=== PATIENT | female | born 1990 | race Hispanic/Latino ===

== ENCOUNTER 2017-06-02 12:44 | Inpatient (IN) | payer OTHER ==
[2017-06-02 12:54] VITALS: BMI 26.6
--- NOTE | 2017-06-02 14:26 | ED PDOC ---
HPI: Abdomen Time Seen by Provider: 06/02/17 13:00 Chief Complaint (Nursing): Abdominal Pain History Per: Patient History/Exam Limitations: no limitations Onset/Duration Of Symptoms: Days (1), Gradual Severity: Moderate Location Of Pain/Discomfort: RUQ, RLQ Quality Of Discomfort: Sharp, Burning Associated Symptoms: Nausea, Vomiting, Diarrhea, Back Pain. denies: Fever, Chills, Constipation, Urinary Symptoms Exacerbating Factors: None Alleviating Factors: None Last Bowel Movement: Today Additional History Per: Patient Additional Complaint(s): C/o epigastric and suprapubic pain since 0100 with vomiting and slight diarrhea. Pt has hx of acid reflux/ GERD Past Medical History Reviewed: Historical Data, Nursing Documentation, Vital Signs Vital Signs: Last Vital Signs Temp 97.7 F 06/02/17 12:54 Pulse 79 06/02/17 12:54 Resp 20 06/02/17 12:54 BP 140/66 06/02/17 12:54 Pulse Ox 100 06/02/17 18:08 - Medical History PMH: No Chronic Diseases - Family History Family History: States: No Known Family Hx - Living Arrangements Living Arrangements: With Family - Social History Current smoker - smoking cessation education provided: No - Home Medications Home Medications: Ambulatory Orders Medication Instructions Recorded No Known Home Med 06/02/17 - Allergies Allergies/Adverse Reactions: Allergies Allergy/AdvReac Type Severity Reaction Status Date / Time Penicillins Allergy RASH Verified 06/02/17 12:54 Review of Systems ROS Statement: Except As Marked, All Systems Reviewed And Found Negative Constitutional: Negative for: Fever, Chills Cardiovascular: Negative for: Chest Pain, Palpitations Respiratory: Negative for: Cough, Shortness of Breath Gastrointestinal: Positive for: Nausea, Abdominal Pain, Diarrhea. Negative for : Constipation, Melena, Hematochezia, Hematemesis Genitourinary Female: Negative for: Dysuria, Vaginal Discharge, Vaginal Bleeding , Pelvic Pain Neurological: Negative for: Weakness, Numbness Physical Exam - Reviewed Nursing Documentation Reviewed: Yes Vital Signs Reviewed: Yes - Physical Exam Appears: Positive for: Uncomfortable Head Exam: Positive for: ATRAUMATIC, NORMAL INSPECTION, NORMOCEPHALIC Eye Exam: Positive for: Normal appearance, EOMI, PERRL Neck: Positive for: Normal, Painless ROM, Supple Cardiovascular/Chest: Positive for: Regular Rate, Rhythm, Chest Non Tender. Negative for: Edema, Gallop, Murmur, Bradycardia, Tachycardia Respiratory: Positive for: Normal Breath Sounds. Negative for: Decreased Breath Sounds, Accessory Muscle Use, Crackles, Rales, Rhonchi, Stridor, Wheezing Pulses-Radial (L): 2+ Pulses-Radial (R): 2+ Gastrointestinal/Abdominal: Positive for: Normal Exam, Bowel Sounds, Soft, Other (obese). Negative for: Tenderness, Organomegaly, Mass, Distended, Guarding Back: Positive for: Normal Inspection. Negative for: L CVA Tenderness, R CVA Tenderness Extremity: Positive for: Normal ROM. Negative for: Tenderness, Pedal Edema, Calf Tenderness, Deformity, Swelling Neurologic/Psych: Positive for: Alert, bottom filler II-XII, Oriented. Negative for: Motor/Sensory Deficits - Laboratory Results Result Diagrams: 06/02/17 14:20 06/02/17 14:20 - ECG ECG: Positive for: Interpreted By Me ECG Rhythm: Positive for: Normal QRS, Normal ST Segment, Sinus Bradycardia. Negative for: ST/T Changes Interpretation Of Abn EKG: rate of 59 no evidence of ischemia O2 Sat by Pulse Oximetry: 100 Pulse Ox Interpretation: Normal Medical Decision Making Medical Decision Making: awaiting surgery call back pt has persistent pain likely cholecystitis, admit to dr louis who agree's with plan. Disposition - Clinical Impression Clinical Impression: Cholecystitis - Patient ED Disposition Is Patient to be Admitted: No Counseled Patient/Family Regarding: Studies Performed, Diagnosis - Disposition Disposition Time: 17:00 Condition: STABLE Forms: [employer] (Ecuadorean) - Pt Status Changed To: Hospital Disposition Of: Inpatient - Admit Certification Admit to Inpatient:: After my assessment, the patient will require hospitalization for at least two midnights. This is because of the severity of symptoms shown, intensity of services needed, and/or the medical risk in this patient being treated as an outpatient. - POA Present On Arrival: None
[2017-06-02 14:30] LABS: BASO # 0.1 K/uL (0.0-0.2); BASO % 0.6 % (0.0-2.0); EOS % 0.4 % (0.0-4.0); HEMATOCRIT 37.3 % (34.0-47.0); LYMPH # 1.5 K/uL (1.0-4.3); LYMPH % 13.7 % (20.0-40.0); MEAN CELL VOLUME 89.3 fl (81.0-99.0); MEAN CORPUSCULAR HEMOGLOBIN 29.7 pg (27.0-31.0); MEAN CORPUSCULAR HGB CONC 33.3 g/dL (33.0-37.0); MEAN PLATELET VOLUME 8.6 fl (7.2-11.7); MONO # 0.5 K/uL (0.0-0.8); MONO % 4.2 % (0.0-10.0); NEUT % 81.1 % (50.0-75.0); NRBC % 0.1 % (0.0-0.0); WHITE BLOOD COUNT 11.1 K/uL (4.8-10.8)
[2017-06-02 14:37] LABS: RBC URINE 1 /hpf (0-3); URINE BILIRUBIN NEGATIVE (NEGATIVE); URINE BLOOD NEGATIVE (NEGATIVE); URINE COLOR STRAW (YELLOW); URINE GLUCOSE (UA) NEG (Normal); URINE KETONE NEGATIVE (NEGATIVE); URINE LEUKOCYTE ESTERASE NEG Leu/uL (Negative); URINE PROTEIN NEGATIVE (NEGATIVE); URINE UROBILINOGEN 0.2-1.0 mg/dL (0.2-1.0); WBC URINE 1 /hpf (0-5)
[2017-06-02 14:45] LABS: ALB/GLOB RATIO 1.4 (1.0-2.1); ALKALINE PHOSPHATASE 54 U/L (38-126); ALT/SGPT 30 U/L (9-52); AMYLASE 74 U/L (30-110); AST/SGOT 20 U/L (14-36); BILIRUBIN,TOTAL 0.5 mg/dl (0.2-1.3); BLOOD UREA NITROGEN 9 mg/dl (7-17); CALCIUM 10.3 mg/dL (8.4-10.2); CARBON DIOXIDE 24 mmol/L (22-30); CHLORIDE 100 mmol/L (98-107); GFR AFRICAN-AMERICAN > 60; GLUCOSE,RANDOM 99 mg/dL (65-105); LIPASE 38 U/L (23-300); POTASSIUM 4.3 MMOL/L (3.6-5.0); SODIUM 132 mmol/l (132-148); TOTAL PROTEIN 7.7 G/DL (6.3-8.2)
[2017-06-02] MEDS ORDERED: Iohexol 300 100 ML IJ ONE (15:15)
--- NOTE | 2017-06-02 15:36 | RAD ---
HISTORY: abd pain COMPARISON: No prior. FINDINGS: LUNGS: No active pulmonary disease. PLEURA: No significant pleural effusion identified, no pneumothorax apparent. CARDIOVASCULAR: Normal. OSSEOUS STRUCTURES: No significant abnormalities. VISUALIZED UPPER ABDOMEN: Normal. OTHER FINDINGS: None. IMPRESSION: No active disease. Concordant results with the preliminary interpretation rendered by the emergency department physician procedure.
--- NOTE | 2017-06-02 16:04 | CT ---
PROCEDURE: CT Abdomen and Pelvis without intravenous contrast HISTORY: Right-sided abdominal pain. Relevant medical history: Reflux COMPARISON: None. TECHNIQUE: Unenhanced study. Neither oral nor intravenous contrast administered. Radiation dose: Total exam DLP = 717.68 717.68 mGy-cm. This CT exam was performed using one or more of the following dose reduction techniques: Automated exposure control, adjustment of the mA and/or kV according to patient size, and/or use of iterative reconstruction technique. FINDINGS: LOWER THORAX: Unremarkable. LIVER: Unremarkable. No gross lesion or ductal dilatation. GALLBLADDER AND BILE DUCTS: Cholelithiasis without CT evidence of acute cholecystitis. Gallbladder is distended. PANCREAS: Unremarkable. No gross lesion or ductal dilatation. SPLEEN: Unremarkable. ADRENALS: Unremarkable. No mass. KIDNEYS AND URETERS: Unremarkable. No hydronephrosis. No solid mass. VASCULATURE: Unremarkable. No aortic aneurysm. BOWEL: Unremarkable. No obstruction. No gross mural thickening. APPENDIX: Unremarkable. Normal appendix. PERITONEUM: Unremarkable. No free fluid. No free air. LYMPH NODES: Unremarkable. No enlarged lymph nodes. BLADDER: Unremarkable. REPRODUCTIVE: Unremarkable. BONES: No acute fracture. OTHER FINDINGS: None. IMPRESSION: Cholelithiasis without CT evidence of acute cholecystitis. Distended gallbladder.
[2017-06-02] MEDS ORDERED: Ciprofloxacin 400mg/200ml D5W 400 MG/200 ML BAG IVPB STA (17:02)
[2017-06-02] MEDS ORDERED: metroNIDAZOLE 500mg/100ml NS IVPB STA (17:03)
[2017-06-02] MEDS ORDERED: Morphine 4 MG/ML VIAL IVP STA (17:16)
[2017-06-02] MEDS ORDERED: Sodium Chloride 0.9% 1,000 ML IV ONE (17:16)
[2017-06-02] MEDS ORDERED: Ciprofloxacin 400mg/200ml D5W 400 MG/200 ML BAG IVPB ONE (17:18)
[2017-06-02] MEDS ORDERED: metroNIDAZOLE 500mg/100ml NS 100 ML IVPB ONE (17:18)
[2017-06-02] MEDS ORDERED: Morphine 4 MG/ML VIAL ONE (17:20)
--- NOTE | 2017-06-02 20:20 | CP.PCM.CON ---
<Marcia Jose - Last Filed: 06/02/17 21:26> History of Present Illness - History of Present Illness History of Present Illness: General Surgery Dr. Barth 27 y/o F w/ PMHx of GERD presents to the ED c/o abd pain. Pt states pain began around 1am this morning. Pain has been intensifying throughout the day which prompted the pt to come in for evaluation. Pt reports having similar pain in the past in relation to her GERD symptoms, but never this severe and never lasting this long. Pain described as squeezing pain in epigastric/RUQ region. Pain is non-radiating, constant pain that worsens in waves. Nothing made pain better and nothing seemed to make pain worse. Pt admits to multiple episodes of NBNB vomiting in association w/ this pain, as well as diarrhea. Pt also admits to chills, lightheadedness, and SOB 2/2 pain. Pt denies CP, palpitations, dysuria, numbness/weakness. PMHx: see above Meds: reviewed in chart ALL: PCN, shellfish PSHx: denies SHx: denies tobacco, drug use. occasional EtOH use FHx: HTN, DM2, fibroids PMD: [place], [place] [phone] Review of Systems - Review of Systems All systems: reviewed and no additional remarkable complaints except (see HPI) Past Patient History - Past Social History Smoking Status: Never Smoked - PSYCHIATRIC Hx Substance Use: No - SURGICAL HISTORY Hx Surgeries: No Meds Allergies/Adverse Reactions: Allergies Allergy/AdvReac Type Severity Reaction Status Date / Time Penicillins Allergy RASH Verified 06/02/17 12:54 - Medications Medications: Current Medications Sodium Chloride (Sodium Chloride 0.9%) 1,000 mls @ 100 mls/hr IV .Q10H ONE Stop: 06/03/17 03:15 Last Admin: 06/02/17 17:32 Dose: 100 mls/hr Physical Exam - Constitutional Appears: Non-toxic, No Acute Distress - Head Exam Head Exam: NORMAL INSPECTION - Eye Exam Eye Exam: Normal appearance - ENT Exam ENT Exam: Mucous Membranes Moist - Respiratory Exam Respiratory Exam: NORMAL BREATHING PATTERN. absent: Accessory Muscle Use, Respiratory Distress - Cardiovascular Exam Cardiovascular Exam: absent: Bradycardia, Tachycardia - GI/Abdominal Exam GI & Abdominal Exam: Soft, Tenderness (TTP RUQ/Epigastric). absent: Distended, Firm, Guarding, Rebound, Rigid - Extremities Exam Extremities exam: Positive for: normal inspection - Neurological Exam Neurological exam: Alert, Oriented x3 - Psychiatric Exam Psychiatric exam: Normal Affect, Normal Mood - Skin Skin Exam: Dry, Intact, Normal Color, Warm Results - Vital Signs Recent Vital Signs: Last Vital Signs Temp 97.7 F 06/02/17 12:54 Pulse 79 06/02/17 12:54 Resp 20 06/02/17 12:54 BP 140/66 06/02/17 12:54 Pulse Ox 100 06/02/17 18:09 - Labs Result Diagrams: 06/02/17 14:20 06/02/17 14:20 Labs: Laboratory Results - last 24 hr 06/02/17 06/02/17 06/02/17 14:20 14:20 14:20 WBC 11.1 H RBC 4.18 Hgb 12.4 Hct 37.3 MCV 89.3 MCH 29.7 MCHC 33.3 RDW 13.0 Plt Count 271 MPV 8.6 Neut % (Auto) 81.1 H Lymph % (Auto) 13.7 L [place] % (Auto) 4.2 Eos % (Auto) 0.4 Baso % (Auto) 0.6 Neut # 9.0 H Lymph # 1.5 [place] # 0.5 Eos # 0.0 Baso # 0.1 Sodium 132 Potassium 4.3 Chloride 100 Carbon Dioxide 24 Anion Gap 12 BUN 9 Creatinine 0.7 Est GFR ( Amer) > 60 Est GFR (Non-Af Amer) > 60 Random Glucose 99 Calcium 10.3 H Total Bilirubin 0.5 AST 20 ALT 30 Alkaline Phosphatase 54 Troponin I < 0.0120 Total Protein 7.7 Albumin 4.6 Globulin 3.2 Albumin/Globulin Ratio 1.4 Amylase 74 Lipase 38 Urine Color Straw Urine Clarity Clear Urine pH 5.0 Ur Specific [place] 1.016 Urine Protein Negative Urine Glucose (UA) Neg Urine Ketones Negative Urine Blood Negative Urine Nitrate Negative Urine Bilirubin Negative Urine Urobilinogen 0.2-1.0 Ur Leukocyte Esterase Neg Urine RBC (Auto) 1 Urine Microscopic WBC 1 Ur Squamous Epith Cells < 1 - Imaging and Cardiology CT scan - abdomen Status: Image reviewed by me US - abdomen Status: Image reviewed by me Assessment & Plan - Assessment and Plan (Free Text) Assessment: 27 y/o F w/ acute cholecystitis - NPO, IVF - IV Abx - pain management - anti-emetic - incentive spirometer - OR scheduled for 4pm tomorrow - GI PPx - hold anti-coagulation Pt discussed w/ Dr. Lary Jose DO PGY2 <Juliocesar Barth - Last Filed: 06/05/17 09:16> Results - Vital Signs Recent Vital Signs: Last Vital Signs Temp 98.2 F 06/04/17 13:00 Pulse 82 06/04/17 13:00 Resp 19 06/04/17 13:00 BP 101/61 06/04/17 13:00 Pulse Ox 96 06/04/17 13:00 - Labs Result Diagrams: 06/04/17 06:05 06/04/17 06:05 Labs: Laboratory Results - last 24 hr 06/02/17 14:35 C.trachomatis RNA (TMA) Not detected N.gonorrhoeae RNA (TMA) Not detected Attending/Attestation - Attestation I have personally seen and examined this patient.: Yes I have fully participated in the care of the patient.: Yes I have reviewed all pertinent clinical information: Yes Notes (Text): Pt was seen and examined at bedside Agree with above note and assessment Pt with Acute cholecystitis with leucocytosis RUQ tenderness Labs and radiology reviewed Ass: Acute Cholecystitis Plan : OR for Lap Cholecystectomy possible Open Consent NPO, IVF C/w IV antibiotic Plan d.w pt in detail. Risk and benefit explained in detail.
[2017-06-02] MEDS ORDERED: HYDROmorphone 0.5 mg/0.5 ml ISec IVP PRN (22:43)
[2017-06-02] MEDS: Dextrose 5%/0.9% NS 1,000 ML IV SCH (23:34)
[2017-06-03] MEDS: metroNIDAZOLE 500mg/100ml NS 100 ML IVPB SCH ×3 (00:43→17:00)
[2017-06-03] MEDS: Ciprofloxacin 400mg/200ml D5W 400 MG/200 ML BAG IVPB SCH ×3 (01:45→17:00)
[2017-06-03] MEDS ORDERED: Ciprofloxacin 400mg/200ml D5W 400 MG/200 ML BAG IVPB SCH (09:00)
[2017-06-03] MEDS: Dextrose 5%/0.9% NS 1,000 ML IV SCH ×2 (09:26→14:11)
[2017-06-03 10:11] LABS: BASO % 0.5 % (0.0-2.0); EOS # 0.1 K/uL (0.0-0.7); EOS % 1.8 % (0.0-4.0); HEMATOCRIT 32.8 % (34.0-47.0); LYMPH # 1.2 K/uL (1.0-4.3); LYMPH % 16.7 % (20.0-40.0); MEAN CELL VOLUME 89.8 fl (81.0-99.0); MEAN CORPUSCULAR HEMOGLOBIN 30.2 pg (27.0-31.0); MEAN CORPUSCULAR HGB CONC 33.7 g/dL (33.0-37.0); MEAN PLATELET VOLUME 8.5 fl (7.2-11.7); MONO # 0.7 K/uL (0.0-0.8); MONO % 9.2 % (0.0-10.0); NEUT # 5.2 K/uL (1.8-7.0); NEUT % 71.8 % (50.0-75.0); WHITE BLOOD COUNT 7.2 K/uL (4.8-10.8)
[2017-06-03 10:20] LABS: PARTIAL THROMBOPLASTIN TIME 26.6 Seconds (25.6-37.1)
[2017-06-03 10:29] LABS: ALB/GLOB RATIO 1.2 (1.0-2.1); ALKALINE PHOSPHATASE 38 U/L (38-126); ALT/SGPT 30 U/L (9-52); AST/SGOT 14 U/L (14-36); BILIRUBIN,TOTAL 0.5 mg/dl (0.2-1.3); BLOOD UREA NITROGEN 7 mg/dl (7-17); CALCIUM 8.2 mg/dL (8.4-10.2); CARBON DIOXIDE 25 mmol/L (22-30); CHLORIDE 107 mmol/L (98-107); GFR AFRICAN-AMERICAN > 60; GLUCOSE,RANDOM 107 mg/dL (65-105); POTASSIUM 4.1 MMOL/L (3.6-5.0); SODIUM 139 mmol/l (132-148); TOTAL PROTEIN 6.1 G/DL (6.3-8.2)
--- NOTE | 2017-06-03 11:05 | US ---
HISTORY: Right upper quadrant pain COMPARISON: None. TECHNIQUE: Grayscale imaging was performed. FINDINGS: LIVER: Measures 16.8 cm in length. Normal echogenicity of the liver parenchyma. No mass. No intrahepatic bile duct dilatation. GALLBLADDER: The gallbladder is distended and there are multiple gallstones. There is mild gallbladder wall thickening or pericholecystic fluid. The sonographic Alatorre's sign is negative. COMMON BILE DUCT: Measures 5.2 mm. No stones. Mild dilatation. PANCREAS: Unremarkable as visualized. No mass. No ductal dilatation. RIGHT KIDNEY: Measures 10.9 cm in length. Normal echogenicity. No calculus, mass, or hydronephrosis. AORTA: No aneurysmal dilatation. IVC: Unremarkable. OTHER FINDINGS: None . IMPRESSION: Distended gallbladder, cholelithiasis and mild gallbladder wall thickening. No evidence of pericholecystic fluid or positive sonographic Alatorre's sign. However these findings in the appropriate clinical setting could represent acute calculus cholecystitis. Clinical follow-up is advised. Mild dilatation of the common bile duct without sonographic evidence for choledocholithiasis.
[2017-06-03] MEDS ORDERED: Midazolam 2 MG/2 ML VIAL ONE (14:27)
[2017-06-03] MEDS ORDERED: Propofol 10 mg/ml Inj (20 ML) ONE (14:27)
[2017-06-03] MEDS ORDERED: Rocuronium 10 mg/ml (5 ml) ONE (14:27)
[2017-06-03] MEDS ORDERED: Succinylcholine 200 mg/10 ml Inj IV ONE (14:27)
[2017-06-03] MEDS ORDERED: Lidocaine 1% 5ml Abboject IV ONE (14:28)
[2017-06-03] MEDS ORDERED: Lidocaine 1% Inj (20ml) ONE (15:11)
[2017-06-03] MEDS ORDERED: Bupivacaine 0.5% Inj(30mL) ONE (15:11)
[2017-06-03] MEDS ORDERED: Ciprofloxacin 400mg/200ml D5W 400 MG/200 ML BAG IVPB ONE (15:25)
[2017-06-03] MEDS ORDERED: metroNIDAZOLE 500mg/100ml NS 100 ML IVPB ONE (15:25)
--- NOTE | 2017-06-03 15:36 | CP.PCM.HP ---
History of Present Illness - History of Present Illness History of Present Illness: CC: Worsened Abdominal Pain Hsitory of Present Illness: A 27 y/o F w/ PMHx of GERD presents to the ED c/o abd pain. Pt states pain began around 1am the morning of presentation to the ER. Pain has been intensifying throughout the day which prompted the pt to come in for evaluation. Pt reports having similar pain in the past in relation to her GERD like symptoms, but never this severe and never lasting this long. Pain described as squeezing pain in epigastric/RUQ region. Pain is non-radiating, constant pain that worsens in waves. Nothing made pain better and nothing seemed to make pain worse. Pt admits to multiple episodes of NBNB vomiting in association w/ this pain, as well as diarrhea. Pt also admits to chills, lightheadedness, and SOB 2/2 pain. Pt denies CP, palpitations, dysuria, numbness /weakness. Present on Admission - Present on Admission Any Indicators Present on Admission: No History of DVT/PE: No History of Uncontrolled Diabetes: No Urinary Catheter: No Decubitus Ulcer Present: No Review of Systems - Review of Systems All systems: reviewed and no additional remarkable complaints except - Gastrointestinal Gastrointestinal: As Per HPI Past Patient History - Past Medical History & Family History Past Medical History?: Yes Past Family History: Reviewed and not pertinent - Past Social History Smoking Status: Never Smoked Alcohol: Occasional Drugs: Denies - CARDIAC Hx Cardiac Disorders: No - PULMONARY Hx Asthma: Yes - NEUROLOGICAL Hx Neurological Disorder: No - RENAL Hx Chronic Kidney Disease: No - ENDOCRINE/METABOLIC Hx Endocrine Disorders: No - HEMATOLOGICAL/ONCOLOGICAL Hx Blood Disorders: No Hx AIDS: No Hx Human Immunodeficiency Virus (HIV): No - INTEGUMENTARY Hx Dermatological Problems: No - MUSCULOSKELETAL/RHEUMATOLOGICAL Hx Musculoskeletal Disorders: No Hx Falls: No - GASTROINTESTINAL Hx Gastroesophageal Reflux: Yes - GENITOURINARY/GYNECOLOGICAL Hx Genitourinary Disorders: No - PSYCHIATRIC Hx Psychophysiologic Disorder: No Hx Substance Use: No - SURGICAL HISTORY Hx Surgeries: No - ANESTHESIA Hx Anesthesia: No Meds Home Medications: Home Medication List Medication Instructions Recorded Confirmed Type Docusate Sodium [Colace] 100 mg PO BID #30 capsule 06/04/17 Rx Ibuprofen [Motrin] 600 mg PO Q6 PRN #30 tab 06/04/17 Rx Allergies/Adverse Reactions: Allergies Allergy/AdvReac Type Severity Reaction Status Date / Time Penicillins Allergy RASH Verified 06/02/17 12:54 Physical Exam - Constitutional Appears: Well, In Acute Distress - Head Exam Head Exam: ATRAUMATIC, NORMAL INSPECTION, NORMOCEPHALIC - Eye Exam Eye Exam: EOMI, Normal appearance, PERRL Pupil Exam: NORMAL ACCOMODATION, PERRL - ENT Exam ENT Exam: Mucous Membranes Moist, Normal Exam - Neck Exam Neck exam: Positive for: Normal Inspection - Respiratory Exam Respiratory Exam: Clear to Auscultation Bilateral, NORMAL BREATHING PATTERN - Cardiovascular Exam Cardiovascular Exam: REGULAR RHYTHM, +S1, +S2 - GI/Abdominal Exam GI & Abdominal Exam: Normal Bowel Sounds, Soft, Tenderness. absent: Guarding, Rebound, Rigid - Extremities Exam Extremities exam: Positive for: full ROM, normal capillary refill, normal inspection - Back Exam Back exam: NORMAL INSPECTION. absent: CVA tenderness (L), CVA tenderness (R) - Neurological Exam Neurological exam: Alert, CN II-XII Intact, Normal Gait, Oriented x3, Reflexes Normal - Psychiatric Exam Psychiatric exam: Normal Affect, Normal Mood - Skin Skin Exam: Dry, Intact, Normal Color, Warm Results - Vital Signs Recent Vital Signs: Last Vital Signs Temp 98.5 F 06/03/17 08:04 Pulse 67 06/03/17 08:04 Resp 18 06/03/17 08:04 BP 99/62 L 06/03/17 08:04 Pulse Ox 93 L 06/03/17 08:04 - Labs Result Diagrams: 06/04/17 06:05 06/04/17 06:05 Labs: Laboratory Results - last 24 hr 06/03/17 06/03/17 06/03/17 09:30 09:30 09:30 WBC 7.2 RBC 3.66 L Hgb 11.1 L Hct 32.8 L MCV 89.8 MCH 30.2 MCHC 33.7 RDW 13.0 Plt Count 227 MPV 8.5 Neut % (Auto) 71.8 Lymph % (Auto) 16.7 L [place] % (Auto) 9.2 Eos % (Auto) 1.8 Baso % (Auto) 0.5 Neut # 5.2 Lymph # 1.2 [place] # 0.7 Eos # 0.1 Baso # 0.0 PT 12.4 INR 1.1 APTT 26.6 Sodium 139 Potassium 4.1 Chloride 107 Carbon Dioxide 25 Anion Gap 11 BUN 7 Creatinine 0.8 Est GFR ( Amer) > 60 Est GFR (Non-Af Amer) > 60 Random Glucose 107 H Calcium 8.2 L Total Bilirubin 0.5 AST 14 D ALT 30 Alkaline Phosphatase 38 D Total Protein 6.1 L Albumin 3.4 L D Globulin 2.8 Albumin/Globulin Ratio 1.2 - Imaging and Cardiology CT scan - abdomen Status: Report reviewed by me Additional comment: /Pelvis: IMPRESSION: Cholelithiasis without CT evidence of acute cholecystitis. Distended gallbladder. U/S Abdomen: Status: Report reviewed by me Additional comment: IMPRESSION: Distended gallbladder, cholelithiasis and mild gallbladder wall thickening. No evidence of pericholecystic fluid or positive sonographic Alatorre's sign. However these findings in the appropriate clinical setting could represent acute calculus cholecystitis. Clinical follow-up is advised. Mild dilatation of the common bile duct without sonographic evidence for choledocholithiasis. Assessment & Plan (1) Acute cholecystitis Assessment and Plan: IVF IV Ciprofloxacin/Flagyl Dilaudid PRN Surgery Consulted Silvio PRN Status: Acute Priority: High
[2017-06-03] MEDS ORDERED: Lactated Ringer's 1,000 ML IV ONE ×2 (15:48→18:10)
[2017-06-03] MEDS ORDERED: Ciprofloxacin 400mg/200ml D5W IVPB ONE (15:55)
[2017-06-03] MEDS ORDERED: metroNIDAZOLE 500mg/100ml NS IVPB ONE (15:55)
[2017-06-03] MEDS ORDERED: Lactated Ringer's 500 ML IV ONE (17:20)
--- NOTE | 2017-06-03 18:13 | PCM.SURG1 ---
Surgeon's Initial Post Op Note - Surgeon's Notes Surgeon: Juliocesar Barth MD Block Bolter Mule Operator: Yamilex Tovar PGY-3; Becki De Jesus PGY-1 Pre-Operative Diagnosis: Symptomatic Cholelithiasis Operative Findings: See op report Post-Operative Diagnosis: Acute cholecystitis Operation Performed: Laparoscopic Cholecystectomy Specimen/Specimens Removed: Gallbladder Estimated Blood Loss: EBL {In ML}: 50 Blood Products Given: N/A Drains Used: No Drains Post-Op Condition: Good Date of Surgery/Procedure: 06/03/17 Time of Surgery/Procedure: 18:12
[2017-06-03] MEDS: HYDROmorphone 0.5 mg/0.5 ml ISec IVP PRN ×2 (18:17→18:55)
[2017-06-04] MEDS: metroNIDAZOLE 500mg/100ml NS 100 ML IVPB SCH ×2 (00:02→10:38)
[2017-06-04] MEDS: Ciprofloxacin 400mg/200ml D5W 400 MG/200 ML BAG IVPB SCH ×2 (01:05→08:57)
[2017-06-04 06:29] LABS: BASO % 0.5 % (0.0-2.0); EOS # 0.1 K/uL (0.0-0.7); EOS % 0.8 % (0.0-4.0); HEMATOCRIT 32.8 % (34.0-47.0); LYMPH # 1.4 K/uL (1.0-4.3); LYMPH % 17.1 % (20.0-40.0); MEAN CELL VOLUME 91.1 fl (81.0-99.0); MEAN CORPUSCULAR HEMOGLOBIN 29.7 pg (27.0-31.0); MEAN CORPUSCULAR HGB CONC 32.6 g/dL (33.0-37.0); MEAN PLATELET VOLUME 8.7 fl (7.2-11.7); MONO # 0.7 K/uL (0.0-0.8); MONO % 8.8 % (0.0-10.0); NEUT # 6.1 K/uL (1.8-7.0); NEUT % 72.8 % (50.0-75.0); NRBC % 0.1 % (0.0-0.0); RED CELL DISTRIBUTION WIDTH 12.8 % (11.5-14.5); WHITE BLOOD COUNT 8.4 K/uL (4.8-10.8)
[2017-06-04 06:43] LABS: ALB/GLOB RATIO 1.2 (1.0-2.1); ALKALINE PHOSPHATASE 39 U/L (38-126); ALT/SGPT 43 U/L (9-52); AST/SGOT 58 U/L (14-36); BILIRUBIN,TOTAL 0.4 mg/dl (0.2-1.3); BLOOD UREA NITROGEN 6 mg/dl (7-17); CALCIUM 7.9 mg/dL (8.4-10.2); CARBON DIOXIDE 25 mmol/L (22-30); CHLORIDE 107 mmol/L (98-107); GFR AFRICAN-AMERICAN > 60; GLUCOSE,RANDOM 91 mg/dL (65-105); POTASSIUM 4.6 MMOL/L (3.6-5.0); SODIUM 139 mmol/l (132-148); TOTAL PROTEIN 6.3 G/DL (6.3-8.2)
[2017-06-04 08:14] VITALS: O2SAT 96
--- NOTE | 2017-06-04 08:37 | CP.PCM.PN ---
Subjective - Date & Time of Evaluation Date of Evaluation: 06/04/17 Time of Evaluation: 07:15 - Subjective Subjective: Seen and examined at the bed side. Staes feeling better. But still soreness to the abdomen. Objective - Vital Signs/Intake and Output Vital Signs (last 24 hours): Temp Pulse Resp BP Pulse Ox 98.7 F 78 18 99/61 L 96 06/04/17 08:13 06/04/17 08:13 06/04/17 08:13 06/04/17 08:13 06/04/17 08:13 - Medications Medications: Current Medications Hydromorphone HCl (Dilaudid) 0.5 mg IVP Q3 PRN PRN Reason: Pain, severe (8-10) Metronidazole (Flagyl 500mg/100ml Ns) 100 mls @ 100 mls/hr IVPB Q8 [place]TT[place] PRN Reason: Protocol Last Admin: 06/04/17 00:02 Dose: 100 mls/hr Ciprofloxacin (Cipro 400mg/200ml Dsw) 400 mg in 200 mls @ 200 mls/hr IVPB Q8 [place] PRN Reason: Protocol Last Admin: 06/04/17 01:05 Dose: 200 mls/hr Lactated Ringer's (Lactated Ringer's) 1,000 mls @ 100 mls/hr IV .Q10H [facility] Ketorolac Tromethamine (Toradol) 30 mg IVP Q6 PRN PRN Reason: Pain, moderate (4-7) Stop: 06/07/17 22:44 Last Admin: 06/03/17 23:56 Dose: 30 mg Ondansetron HCl (Zofran Inj) 4 mg IVP Q4 PRN PRN Reason: Nausea/Vomiting Last Admin: 06/03/17 10:45 Dose: 4 mg Pantoprazole Sodium (Protonix Inj) 40 mg IVP DAILY [facility] Last Admin: 06/03/17 09:28 Dose: 40 mg - Labs Labs: 06/04/17 06:05 06/04/17 06:05 PT 12.4 Seconds (9.8-13.1) 06/03/17 09:30 INR 1.1 (0.9-1.2) 06/03/17 09:30 APTT 26.6 Seconds (25.6-37.1) 06/03/17 09:30 - Constitutional Appears: Well, No Acute Distress - Head Exam Head Exam: ATRAUMATIC, NORMAL INSPECTION, NORMOCEPHALIC - Eye Exam Eye Exam: EOMI, Normal appearance, PERRL Pupil Exam: NORMAL ACCOMODATION, PERRL - ENT Exam ENT Exam: Mucous Membranes Moist, Normal Exam - Neck Exam Neck Exam: Full ROM, Normal Inspection. absent: Lymphadenopathy - Respiratory Exam Respiratory Exam: Clear to Ausculation Bilateral, NORMAL BREATHING PATTERN - Cardiovascular Exam Cardiovascular Exam: REGULAR RHYTHM, +S1, +S2. absent: Murmur - GI/Abdominal Exam GI & Abdominal Exam: Soft, Normal Bowel Sounds. absent: Tenderness - Extremities Exam Extremities Exam: Full ROM, Normal Capillary Refill, Normal Inspection. absent : Joint Swelling, Pedal Edema - Back Exam Back Exam: NORMAL INSPECTION. absent: CVA tenderness (L), CVA tenderness (R) - Neurological Exam Neurological Exam: Alert, Awake, CN II-XII Intact, Normal Gait, Oriented x3 - Psychiatric Exam Psychiatric exam: Normal Affect, Normal Mood - Skin Skin Exam: Dry, Intact, Normal Color, Warm Assessment and Plan (1) Acute cholecystitis Assessment & Plan: S/P LAp-Cholecystectomy Tolerating PO D/C Home Status: Acute
--- NOTE | 2017-06-04 08:44 | OP ---
PROCEDURE DATE: 06/03/2017 PREOPERATIVE DIAGNOSES: Acute cholecystitis and leukocytosis. POSTOPERATIVE DIAGNOSES: 1. Acute on chronic cholecystitis. 2. Hydrops of the gallbladder. 3. Extensive postinfectious adhesion. 4. Hepatomegaly. PROCEDURE: 1. Laparoscopic cholecystectomy. 2. Laparoscopic extensive lysis of adhesion. 3. Laparoscopic drainage of hydrops of the gallbladder. SURGEON: The procedure was done by Juliocesar bello MD. BUSINESS DEVELOPMENT SALES EXECUTIVE: ALLI Dalal. TYPE OF ANESTHESIA: General endotracheal tube anesthesia. INTRAOPERATIVE FINDINGS: The patient had extensive postinfectious adhesion of the gallbladder to the omentum, gallbladder to the colon and also gallbladder to the duodenum. The patient also has extremely thickened and edematous and distended gallbladder due to the hydrops of the gallbladder. The patient also had large multiple stones. During initial evaluation, the patient found to have enlarged liver as well as extremely thickened and edematous large distended gallbladder, so all the port was placed lower than usual port position. ESTIMATED BLOOD LOSS: Around 50 mL. DRAIN: None. PATHOLOGY: Gallbladder with the gallstones was sent for the pathology. COMPLICATIONS: None. DESCRIPTION OF PROCEDURE: On intraoperative steps, this is a 27-year-old female, who was diagnosed with acute cholecystitis and cholelithiasis and the patient was consented for laparoscopic cholecystectomy, possible open, brought to the OR, placed supine on the operating table. After induction of the anesthesia, the abdomen was prepped and draped in the usual sterile fashion. The supraumbilical transverse incision was made after incising skin and subcutaneous tissue and the fascia. Riley port was placed. Pneumo was created. Another 12-mm port was placed in the midline below costal margin and another two 5-mm ports were placed in the midclavicular and anterior axillary line. After that, the gallbladder first was aspirated and there was clear fluid was aspirated due to the hydrops of the gallbladder and after aspiration of the hydrops of the gallbladder, the gallbladder was retracted cranially. Now, the extensive lysis of adhesion was done from the omentum to the gallbladder, colon to the gallbladder as well as duodenum to the infundibulum and dissection was carried down. The patient had extensive inflammation and dissection was carried down up to the Calot's triangle and the cystic duct and cystic artery were dissected and clipped at three places and cut in between two clips nearby gallbladder and the gallbladder was dissected free from the gallbladder fossa, taken in an EndoCatch bag, taken out through the umbilical port site and sent to the table for the pathology. There was a proper hemostasis in each and every part of the procedure. All the fluid was suctioned out and all the port was taken out under vision. Pneumo was deflated. The umbilical port site was closed in two layers, fascia with 0 Vicryl interrupted sutures, skin with 4-0 Monocryl and dry sterile dressing was applied. The patient tolerated the procedure well. Count of instrument and gauze was correct. There was no apparent complication. The patient was extubated in the OR, sent to the Postanesthesia Care Unit in stable condition. Juliocesar Barth MD
[2017-06-04] MEDS: Dextrose 5%/0.9% NS 1,000 ML IV SCH (08:47)
[2017-06-04] MEDS: Lactated Ringer's 1,000 ML IV SCH ×2 (08:51→08:52)
--- NOTE | 2017-06-04 11:53 | CARD ---
APPROVED REPORT EKG Measurement Heart [id number] <Conclusion> Sinus bradycardia Otherwise normal ECG
--- NOTE | 2017-06-04 13:26 | CP.PCM.PN ---
<Yamilex Tovar - Last Filed: 06/04/17 14:47> Subjective - Date & Time of Evaluation Date of Evaluation: 06/04/17 Time of Evaluation: 09:00 - Subjective Subjective: GENERAL SURGERY PROGRESS NOTE FOR DR. BARTH Patient seen and examined at bedside. She is doing well. She is ambulating in the halls and to the bathroom. She states that she only has abdominal pain when she moves. Her pain is well controlled with toradol. She is tolerating regular diet and denies nausea or vomiting. Objective - Vital Signs/Intake and Output Vital Signs (last 24 hours): Temp Pulse Resp BP Pulse Ox 98.7 F 78 18 99/61 L 96 06/04/17 08:13 06/04/17 08:13 06/04/17 08:13 06/04/17 08:13 06/04/17 08:13 - Medications Medications: Current Medications Hydromorphone HCl (Dilaudid) 0.5 mg IVP Q3 PRN PRN Reason: Pain, severe (8-10) Metronidazole (Flagyl 500mg/100ml Ns) 100 mls @ 100 mls/hr IVPB Q8 COLLETTE PRN Reason: Protocol Last Admin: 06/04/17 10:38 Dose: 100 mls/hr Ciprofloxacin (Cipro 400mg/200ml Dsw) 400 mg in 200 mls @ 200 mls/hr IVPB Q8 COLLETTE PRN Reason: Protocol Last Admin: 06/04/17 08:57 Dose: 200 mls/hr Lactated Ringer's (Lactated Ringer's) 1,000 mls @ 100 mls/hr IV .Q10H [facility] Last Admin: 06/04/17 08:52 Dose: 100 mls/hr Ketorolac Tromethamine (Toradol) 30 mg IVP Q6 PRN PRN Reason: Pain, moderate (4-7) Stop: 06/07/17 22:44 Last Admin: 06/04/17 10:38 Dose: 30 mg Ondansetron HCl (Zofran Inj) 4 mg IVP Q4 PRN PRN Reason: Nausea/Vomiting Last Admin: 06/03/17 10:45 Dose: 4 mg Pantoprazole Sodium (Protonix Inj) 40 mg IVP DAILY [facility] Last Admin: 06/04/17 08:58 Dose: 40 mg - Labs Labs: 06/04/17 06:05 06/04/17 06:05 PT 12.4 Seconds (9.8-13.1) 06/03/17 09:30 INR 1.1 (0.9-1.2) 06/03/17 09:30 APTT 26.6 Seconds (25.6-37.1) 06/03/17 09:30 - Constitutional Appears: Well, Non-toxic, No Acute Distress - Head Exam Head Exam: ATRAUMATIC, NORMAL INSPECTION - Respiratory Exam Respiratory Exam: NORMAL BREATHING PATTERN. absent: Respiratory Distress - Cardiovascular Exam Cardiovascular Exam: +S1, +S2. absent: Tachycardia - GI/Abdominal Exam GI & Abdominal Exam: Soft, Tenderness (mildly tender at laparoscopic incision sites, normal in post operative period). absent: Distended, Firm, Guarding, Rigid, Rebound Additional comments: Laparoscopic incision sites with dressings clean/dry/intact - Neurological Exam Neurological Exam: Alert, Awake, Oriented x3 - Psychiatric Exam Psychiatric exam: Normal Affect, Normal Mood - Skin Skin Exam: Dry, Normal Color, Warm Assessment and Plan - Assessment and Plan (Free Text) Assessment: 27yo F with acute cholecystitis s/p laparoscopic cholecystectomy POD#1 - Afebrile, VSS - No leukocytosis - AST mildly elevated, normal after cholecystectomy - Tolerating regular diet and ambulating - Pain well controlled - Clear for discharge home from surgical standpoint - Discussed plan with Dr. Lary Tovar PGY-3 Discharge instructions were discussed with patient and family: May remove band aids 5 days after surgery Leave white steri strips underneath that in place. They will fall off on their own over time. May shower in 5 days after band aids are removed. Do not take a bath or swim for 2 weeks. Avoid heavy lifting for 4 weeks. Eat a low fat diet. Follow up with Dr. Barth in his office in 10-14 days. Return to the ER if you develop worsening abdominal pain, fever, vomiting. <Juliocesar Barth - Last Filed: 06/05/17 09:20> Objective - Vital Signs/Intake and Output Vital Signs (last 24 hours): Temp Pulse Resp BP Pulse Ox 98.2 F 82 19 101/61 96 06/04/17 13:00 06/04/17 13:00 06/04/17 13:00 06/04/17 13:00 06/04/17 13:00 - Labs Labs: 06/04/17 06:05 06/04/17 06:05 PT 12.4 Seconds (9.8-13.1) 06/03/17 09:30 INR 1.1 (0.9-1.2) 06/03/17 09:30 APTT 26.6 Seconds (25.6-37.1) 06/03/17 09:30 Attending/Attestation - Attestation I have personally seen and examined this patient.: Yes I have fully participated in the care of the patient.: Yes I have reviewed all pertinent clinical information, including history, physical exam and plan: Yes Notes (Text): Pt was seen and examined at bedside Agree with above note and assessment Pt can be DC home PO Percocet Low fat reg diet f/u as out pt Plan d.w pt in detail. Risk and benefit explained in detail.
[2017-06-04 15:05] VITALS: BP 101/61; PULSE 82; RESP 19; TEMP 98.2
--- NOTE | 2017-06-04 23:36 | CP.PCM.DIS ---
Provider - Provider Date of Admission: 06/02/17 17:00 Attending physician: Henna Maria MD Time Spent in preparation of Discharge (in minutes): 30 Diagnosis - Discharge Diagnosis (1) Acute cholecystitis Status: Resolved Priority: High Hospital Course - Lab Results Lab Results: Most Recent Lab Values WBC 8.4 K/uL (4.8-10.8) 06/04/17 06:05 RBC 3.60 Mil/uL (3.80-5.20) L 06/04/17 06:05 Hgb 10.7 g/dL (12.0-16.0) L 06/04/17 06:05 Hct 32.8 % (34.0-47.0) L 06/04/17 06:05 MCV 91.1 fl (81.0-99.0) 06/04/17 06:05 MCH 29.7 pg (27.0-31.0) 06/04/17 06:05 MCHC 32.6 g/dL (33.0-37.0) L 06/04/17 06:05 RDW 12.8 % (11.5-14.5) 06/04/17 06:05 Plt Count 212 K/uL (130-400) 06/04/17 06:05 MPV 8.7 fl (7.2-11.7) 06/04/17 06:05 Neut % (Auto) 72.8 % (50.0-75.0) 06/04/17 06:05 Lymph % (Auto) 17.1 % (20.0-40.0) L 06/04/17 06:05 [place] % (Auto) 8.8 % (0.0-10.0) 06/04/17 06:05 Eos % (Auto) 0.8 % (0.0-4.0) 06/04/17 06:05 Baso % (Auto) 0.5 % (0.0-2.0) 06/04/17 06:05 Neut # 6.1 K/uL (1.8-7.0) 06/04/17 06:05 Lymph # 1.4 K/uL (1.0-4.3) 06/04/17 06:05 [place] # 0.7 K/uL (0.0-0.8) 06/04/17 06:05 Eos # 0.1 K/uL (0.0-0.7) 06/04/17 06:05 Baso # 0.0 K/uL (0.0-0.2) 06/04/17 06:05 PT 12.4 Seconds (9.8-13.1) 06/03/17 09:30 INR 1.1 (0.9-1.2) 06/03/17 09:30 APTT 26.6 Seconds (25.6-37.1) 06/03/17 09:30 Sodium 139 mmol/l (132-148) 06/04/17 06:05 Potassium 4.6 MMOL/L (3.6-5.0) 06/04/17 06:05 Chloride 107 mmol/L (98-107) 06/04/17 06:05 Carbon Dioxide 25 mmol/L (22-30) 06/04/17 06:05 Anion Gap 12 (10-20) 06/04/17 06:05 BUN 6 mg/dl (7-17) L 06/04/17 06:05 Creatinine 1.0 mg/dl (0.7-1.2) 06/04/17 06:05 Est GFR ( Amer) > 60 06/04/17 06:05 Est GFR (Non-Af Amer) > 60 06/04/17 06:05 Random Glucose 91 mg/dL (65-105) 06/04/17 06:05 Calcium 7.9 mg/dL (8.4-10.2) L 06/04/17 06:05 Total Bilirubin 0.4 mg/dl (0.2-1.3) 06/04/17 06:05 AST 58 U/L (14-36) H D 06/04/17 06:05 ALT 43 U/L (9-52) 06/04/17 06:05 Alkaline Phosphatase 39 U/L (38-126) 06/04/17 06:05 Troponin I < 0.0120 ng/mL (0.00-0.120) 06/02/17 14:20 Total Protein 6.3 G/DL (6.3-8.2) 06/04/17 06:05 Albumin 3.5 g/dL (3.5-5.0) 06/04/17 06:05 Globulin 2.8 gm/dL (2.2-3.9) 06/04/17 06:05 Albumin/Globulin Ratio 1.2 (1.0-2.1) 06/04/17 06:05 Amylase 74 U/L (30-110) 06/02/17 14:20 Lipase 38 U/L (23-300) 06/02/17 14:20 Urine Color Straw (YELLOW) 06/02/17 14:20 Urine Clarity Clear (Clear) 06/02/17 14:20 Urine pH 5.0 (5.0-8.0) 06/02/17 14:20 Ur Specific Evans 1.016 (1.003-1.030) 06/02/17 14:20 Urine Protein Negative mg/dL (NEGATIVE) 06/02/17 14:20 Urine Glucose (UA) Neg mg/dL (Normal) 06/02/17 14:20 Urine Ketones Negative mg/dL (NEGATIVE) 06/02/17 14:20 Urine Blood Negative (NEGATIVE) 06/02/17 14:20 Urine Nitrate Negative (NEGATIVE) 06/02/17 14:20 Urine Bilirubin Negative (NEGATIVE) 06/02/17 14:20 Urine Urobilinogen 0.2-1.0 mg/dL (0.2-1.0) 06/02/17 14:20 Ur Leukocyte Esterase Neg Nicolas/uL (Negative) 06/02/17 14:20 Urine RBC (Auto) 1 /hpf (0-3) 06/02/17 14:20 Urine Microscopic WBC 1 /hpf (0-5) 06/02/17 14:20 Ur Squamous Epith Cells < 1 /hpf (0-5) 06/02/17 14:20 C.trachomatis RNA (TMA) Not detected (Not Detected) 06/02/17 14:35 N.gonorrhoeae RNA (TMA) Not detected (Not Detected) 06/02/17 14:35 Discharge Exam - Head Exam Head Exam: ATRAUMATIC, NORMAL INSPECTION, NORMOCEPHALIC - Eye Exam Eye Exam: EOMI, Normal appearance, PERRL Pupil Exam: NORMAL ACCOMODATION, PERRL - GI/Abdominal Exam GI & Abdominal Exam: Normal Bowel Sounds - Rectal Exam Rectal Exam: NORMAL INSPECTION - Exam Exam: Circumcision, NORMAL INSPECTION External exam: NORMAL EXTERNAL EXAM Speculum exam: NORMAL SPECULUM EXAM Bimanual exam: NORMAL BIMANUAL EXAM - Neurological Exam Neurological exam: Alert, CN II-XII Intact, Normal Gait, Oriented x3, Reflexes Normal - Psychiatric Exam Psychiatric exam: Normal Affect, Normal Mood - Skin Skin Exam: Dry, Intact, Normal Color, Warm Discharge Plan - Discharge Medications Prescriptions: Docusate Sodium [Colace] 100 mg PO BID #30 capsule Ibuprofen [Motrin] 600 mg PO Q6 PRN #30 tab PRN Reason: Pain, Moderate (4-7) - Follow Up Plan Condition: STABLE Disposition: HOME/ ROUTINE Instructions: Gallstones (DC), Low Fat Diet (DC), Laparoscopic Cholecystectomy (DC) Additional Instructions: May remove band aids 5 days after surgery Leave white steri strips underneath that in place. They will fall off on their own over time. May shower in 5 days after band aids are removed. Do not take a bath or swim for 2 weeks. Avoid heavy lifting for 4 weeks. Eat a low fat diet. Follow up with Dr. Barth in his office in 10-14 days. Return to the ER if you develop worsening abdominal pain, fever, vomiting. Referrals: Juliocesar Barth MD [Staff Provider] -
== END 2017-06-04 16:27 | disposition home or self-care (01) | DRG 418 ==
LOC: H.ER 12:44 → H.ERHOLD 17:00 → H.MEDSURG1 21:16
PROVIDERS: ADMIT Internal Medicine; ATTEND Internal Medicine
PROC: 0DNU4ZZ Release Omentum, Percutaneous Endoscopic Approach (ICD-10-PCS; 2017-06-02)
PROC: 0FT44ZZ Resection of Gallbladder, Percutaneous Endoscopic Approach (ICD-10-PCS; principal; 2017-06-03 16:00)
DX: K80.12 Calculus of gallbladder with acute and chronic cholecystitis without obstruction (principal); K82.1 Hydrops of gallbladder; E11.9 Type 2 diabetes mellitus without complications; I10 Essential (primary) hypertension; J45.909 Unspecified asthma, uncomplicated; K21.9 Gastro-esophageal reflux disease without esophagitis; R16.0 Hepatomegaly, not elsewhere classified; K66.0 Peritoneal adhesions (postprocedural) (postinfection)